=== PATIENT | male | born 2005 | race Caucasian/White ===

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

== ENCOUNTER 2024-09-24 21:30 | Emergency (ER) | payer OTHER, BC ==
[~2024-09-24] VITALS: Ht 177.8 cm; Wt 68.0 kg
[2024-09-24 21:41] VITALS: BP 128/71; PULSE 90; RESP 14; TEMP 98.9; O2SAT 100
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
[2024-09-24] MEDS ORDERED: GABA300T4 PO (23:59)
== END 2024-09-25 00:43 | disposition home or self-care (01) ==
LOC: EDBD 21:30 → ER 21:38
DX: S13.4XXA Sprain of ligaments of cervical spine, initial encounter (principal); Z88.0 Allergy status to penicillin; Z88.1 Allergy status to other antibiotic agents; V89.2XXA Person injured in unspecified motor-vehicle accident, traffic, initial encounter; Y93.89 Activity, other specified; Y92.89 Other specified places as the place of occurrence of the external cause; Y99.8 Other external cause status
CPT/HCPCS: 70450; 72125